=== PATIENT | male | born 1950 | race Caucasian/White ===

== ENCOUNTER 2020-06-16 08:46 | Inpatient (IN) | payer MEDICARE ==
[2020-06-14 10:45] LABS: BASOPHILS # (AUTO) 0.1 X10'3 (0-0.2); BASOPHILS % (AUTO) 1.3 % (0-1); EOSINOPHILS % (AUTO) 0.1 % (0-6); LYMPHOCYTES # (AUTO) 0.8 X10'3 (1.1-4.8); LYMPHOCYTES % (AUTO) 9.9 % (21-51); MEAN CORPUSCULAR HEMOGLOBIN 37.8 PG (27.0-31.0); MEAN CORPUSCULAR HGB CONC 35.6 g/dL (33.0-36.5); MEAN CORPUSCULAR VOLUME 106.4 FL (78-98); MEAN PLATELET VOLUME 7.9 FL (7.4-10.4); MONOCYTES # (AUTO) 0.6 X10'3 (0-0.9); NEUTROPHILS # (AUTO) 6.9 X10'3 (1.8-7.7); NEUTROPHILS % (AUTO) 81.7 % (42-75); PRE OP HEMOGLOBIN 11.7 g/dL (14.0-17.9); PRE OP PLATELET COUNT 280 X10'3 (140-440); RED BLOOD COUNT 3.11 X10'6 (4.70-6.10); RED CELL DISTRIBUTION WIDTH 12.8 % (11.5-14.5)
[2020-06-14 11:00] LABS: PRE OP PROTIME 10.2 SECONDS (9.0-12.0)
[2020-06-14 11:03] LABS: ALBUMIN 3.7 G/DL (3.4-5.0); ALBUMIN/GLOBULIN RATIO 0.9 (1.1-1.5); ALKALINE PHOSPHATASE 78 IU/L (46-116); BLOOD UREA NITROGEN 23 MG/DL (7-18); BUN/CREATININE RATIO 18.4 (5.4-32.0); CALCIUM 9.3 MG/DL (8.5-10.1); CHLORIDE 91 MMOL/L (99-107); CREATININE 1.25 MG/DL (0.60-1.10); PRE OP ALT 30 U/L (30-65); PRE OP ANION GAP 11 (8-16); PRE OP AST 30 U/L (10-37); PRE OP BILIRUB, TOTAL 0.5 MG/DL (0.0-1.0); PRE OP GLUCOSE 97 MG/DL (70-104); PRE OP POTASSIUM 4.3 MMOL/L (3.4-5.1); TOTAL CARBON DIOXIDE 24.9 MMOL/L (24-32); TOTAL PROTEIN 7.8 G/DL (6.4-8.2); eGFR 57 ML/MIN
[2020-06-14 11:05] LABS: PRE OP SODIUM 127 MMOL/L (135-145)
[~2020-06-16] VITALS: Ht 170.2 cm; Wt 59.0 kg
[~2020-06-16 08:46] MED LIST: AMLO2.5T2 PO; ASPI81TA52 PO; ATOR40TA PO; CHLO25TA11 PO; CHOL100046 PO; CLOP75TA34 PO; POTASSIUM PO; SILD100T PO; SULF1TAB49 PO; THIA100T70 PO; VITA1TAB20 PO; albuterol 2.5 MG/3 ML nebule NEB ONE; cefazolin/dext.iso 2gm/100ml IV ONE; famotidine 20mg tablet PO ONE; ringers solution, lacted 1,000 ML IV SCH
[2020-06-16] MEDS ORDERED: ceFAZolin 1000mg inj ONE (09:18)
[2020-06-16] MEDS ORDERED: heparin 10,000 units/1 ML INJ ONE (09:18)
[2020-06-16] MEDS ORDERED: nitroPRUSSIDE (NIPRIDE) (200MCG/ML) 100ML Drip IV SCH (09:50)
[2020-06-16] MEDS ORDERED: PHENYLephrine 100 MG in NS 250ml IV soln IV SCH (09:55)
[2020-06-16] MEDS ORDERED: phenylephrine 50 MG in NS 250ml IVPB IV SCH (09:55)
[2020-06-16] MEDS ORDERED: phenylephrine inj 50 MG in normal saline 250ml IV soln 245 ML IV SCH (10:01)
[2020-06-16] MEDS ORDERED: iohexol 350MG/ML 100ml bottle IV ONE (10:07)
[2020-06-16 10:18] LABS: ISTAT CREATININE 1.6 mg/dL (0.8-1.3); ISTAT HGB 11.6 g/dl (14.0-18.0); ISTAT IONIZED CALCIUM 1.14 mmol/L (1.03-1.32); ISTAT K 4.2 mmol/L (3.5-5.1); POC BUN/CREATININE RATIO 12.5 (5.4-32.0)
--- NOTE | 2020-06-16 11:35 | NUR ---
PT WAS BEING ADMITTED FOR SURGERY AND SOIDUM LEVEL IS 123. DR VALENCIA IMMEDIATELY NOTIFIED. SURGERY CANCELLED PER ANESTHESIA. PT DENIES ANY SYMPTOMS AND AGREES HE WANTS TO GO HOME. DR. CARRIZALES ALSO IN TO SEE PT. 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 CALHOUN OFFICE FRIDAY MORNING. SURGERY WILL BE RESCHEDULED ONCE NA LEVELS WNL. PT DRESSED AND HOME SAFELY VIA W/C. PT AND SPOUSE STATE UNDERSTANDING RE: ALL INSTRUCTIONS W/ PLAN FOR SURGERY RESCHEDULE. ALL BELONGINGS W/ PT UPON DC TO HOME.
== END 2020-06-16 14:25 | disposition home or self-care (01) | DRG 68 ==
LOC: PAS IN 08:46
PROVIDERS: ADMIT Surgery; ATTEND Surgery
DX: I65.22 Occlusion and stenosis of left carotid artery (principal); Z20.822 Contact with and (suspected) exposure to COVID-19; Z53.8 Procedure and treatment not carried out for other reasons
CPT/HCPCS: 36415; 71046; 80047; 80053; 85025; 85610; 85730; 86885; 86900; 86901; 86920; 87081; 87426; J0690; J1644; J7120; Q9967